=== PATIENT | female | born 1995 | race Caucasian/White ===

== ENCOUNTER 2017-02-22 18:54 | Emergency (ER) | payer SELFPAY ==
[2017-02-22 19:49] VITALS: BP 121/67
[2017-02-22 20:16] LABS: Basophils % (Auto) 0.4 % (0.0-1.8); Hematocrit 40.7 % (30.3-42.9); Hemoglobin 13.4 gm/dl (10.1-14.3); Mean Corpuscular HGB Conc 33 % (30-34); Mean Corpuscular Hemoglobin 27 pg (28-32); Mean Corpuscular Volume 81 fl (79-97); Platelet Count 304 K/mm3 (140-440); Red Cell Distribution Width 14.7 % (13.2-15.2); White Blood Count 10.5 K/mm3 (4.5-11.0)
[2017-02-22 21:08] LABS: Alanine Aminotransferase 15 units/L (7-56); Albumin 4.1 g/dL (3.9-5); Albumin/Globulin Ratio 1.6 %; Alkaline Phosphatase 78 units/L (35-129); Anion Gap 19 mmol/L; BUN/Creatinine Ratio 15.71; Blood Urea Nitrogen 11 mg/dL (7-17); Carbon Dioxide 24 mmol/L (22-30); Chloride 101.6 mmol/L (98-107); Glucose 94 mg/dL (65-100); Lipase 20 units/L (13-60); Sodium 141 mmol/L (137-145); Total Protein 6.7 g/dL (6.3-8.2)
[2017-02-22 21:15] LABS: Bilirubin,Urine SM (Negative); Blood,Urine NEG (Negative); Ketones,Urine TR mg/dL (Negative); Leukocyte Esterase,Urine MOD (Negative); Mucus,Urine 1+ /HPF; Nitrite,Urine NEG (Negative)
--- NOTE | 2017-02-27 00:56 | ED Elopement Review ---
ED Pt Elopement review - Results review Lab results: Laboratory Tests 02/22/17 02/22/17 02/22/17 19:59 19:59 20:50 WBC 10.5 RBC 5.00 Hgb 13.4 Hct 40.7 MCV 81 MCH 27 L MCHC 33 RDW 14.7 Plt Count 304 Lymph % (Auto) 8.8 L [place] % (Auto) 6.3 Eos % (Auto) 0.0 Baso % (Auto) 0.4 Lymph # 0.9 L [place] # 0.7 Eos # 0.0 Baso # 0.0 Seg Neutrophils % 84.5 H Seg Neutrophils # 8.9 H Sodium 141 Potassium 4.0 Chloride 101.6 Carbon Dioxide 24 Anion Gap 19 BUN 11 Creatinine 0.7 Estimated GFR > 60 BUN/Creatinine Ratio 15.71 Glucose 94 Calcium 9.0 Total Bilirubin 0.80 AST 17 ALT 15 Alkaline Phosphatase 78 Total Protein 6.7 Albumin 4.1 Albumin/Globulin Ratio 1.6 Lipase 20 Urine Color [place] Urine Turbidity Clear Urine pH 5.0 Ur Specific [place] 1.035 H Urine Protein 100 mg/dl Urine Glucose (UA) Neg Urine Ketones Tr Urine Blood Neg Urine Nitrite Neg Urine Bilirubin Sm Urine Ictotest Negative Urine Urobilinogen 2.0 Ur Leukocyte Esterase Mod Urine WBC (Auto) 1.0 Urine RBC (Auto) 2.0 U Epithel Cells (Auto) 9.0 Urine Mucus 1+ Urine HCG, Qual Negative - Call Back decision Pt Call Back Decision: No action required
== END 2017-02-22 22:00 | disposition left against medical advice (07) ==
LOC: ED 18:54
DX: R51 Headache (principal); R50.9 Fever, unspecified; R11.10 Vomiting, unspecified; Z53.21 Procedure and treatment not carried out due to patient leaving prior to being seen by health care provider
CPT/HCPCS: 36415; 80053; 81001; 81025; 83690; 85025